=== PATIENT | male | born 1955 | race African-American/Black ===

== ENCOUNTER → 2021-11-28 | Outpatient (CLI) | payer MEDICARE ==
[~2021-11-28] MED LIST: AMLODIPINE5 MG PO; BACLOFEN10 MG PO; BLOOD PRESSURE MED; DARVOCET N 101 UDTAB PO; LORTAB 5/500 501 TAB PO; MUCINEX DM 30 M1 TER PO; PERCOCET 325 MG1 TA2 PO; PHENERGAN W/CO120 ML PO; SOME BP MED; TRAMADOL50 MG PO; ULTRAM100 MG PO
== END ==
LOC: COL.RAD 14:12
DX: N43.3 Hydrocele, unspecified (principal)